=== PATIENT | female | born 1965 | race Caucasian/White ===

== ENCOUNTER → 2019-08-22 | Outpatient (CLI) | payer OTHER ==
[2019-08-22 09:30] LABS: BASO % 0.5 % (0.0-2.0); EOS # 0.2 (0.0-0.7); EOS % 2.4 % (0-4.0); GRAN # 5.4 (1.4-6.5); GRAN % 69.5 % (42.2-75.2); HEMATOCRIT 46.9 % (37.0-47.0); HEMOGLOBIN 15.5 g/dl (12.5-16.0); LYMPH # 1.7 (1.2-3.4); MEAN CELL VOLUME 84 fl (80.0-100.0); MEAN CORPUSCULAR HEMOGLOBIN 28 pg (27.0-31.0); MEAN CORPUSCULAR HGB CONC 33 g/dl (33.0-37.0); MONO # 0.4 (0.1-0.6); MONO % 5.2 % (1.7-9.3); PLATELET COUNT 237 K/mm3 (130-400); RED BLOOD COUNT 5.58 M/mm3 (4.10-5.30); REDCELL DISTRIBUTION WIDTH-CV 13.1 % (11.5-14.5)
[2019-08-22 09:58] LABS: IRON,SERUM 91 ug/dL (35-150)
[2019-08-22 10:07] LABS: TOTAL IRON BINDING CAPACITY 371 ug/dL (265-497)
== END ==
LOC: COL.LAB 08:45
PROVIDERS: Family Medicine
DX: Z00.01 Encounter for general adult medical examination with abnormal findings (principal); R71.8 Other abnormality of red blood cells

== ENCOUNTER 2019-12-07 12:00 | Inpatient (IN) | payer OTHER ==
[~2019-12-07] VITALS: Wt 121.8 kg
[2019-12-07 12:57] LABS: BASO # 0.1 (0.0-0.2); BASO % 0.7 % (0.0-2.0); EOS # 0.2 (0.0-0.7); EOS % 2.7 % (0-4.0); GRAN # 4.6 (1.4-6.5); GRAN % 69.4 % (42.2-75.2); HEMATOCRIT 45.4 % (37.0-47.0); HEMOGLOBIN 14.7 g/dl (12.5-16.0); LYMPH # 1.3 (1.2-3.4); LYMPH % 19.9 % (20.0-51.0); MEAN CELL VOLUME 87 fl (80.0-100.0); MEAN CORPUSCULAR HEMOGLOBIN 28 pg (27.0-31.0); MEAN CORPUSCULAR HGB CONC 32 g/dl (33.0-37.0); MEAN PLATELET VOLUME 10.6 fl (7.4-10.4); MONO # 0.5 (0.1-0.6); MONO % 6.9 % (1.7-9.3); PLATELET COUNT 255 K/mm3 (130-400); REDCELL DISTRIBUTION WIDTH-CV 15.1 % (11.5-14.5)
[2019-12-07 13:08] LABS: COLLECTION METHOD CLEAN CATCH
[2019-12-07 13:21] LABS: PH 5 (5-8); URINE APPEARANCE Cloudy; URINE BILIRUBIN Positive (NEGATIVE); URINE BLOOD 1+ (NEGATIVE); URINE COLOR Amber; URINE GLUCOSE Negative (NEGATIVE); URINE KETONE Trace (NEGATIVE); URINE LEUKOCYTE ESTERASE Negative (NEGATIVE); URINE NITRATE Negative (NEGATIVE); URINE PROTEIN(semi-quant) Negative (NEGATIVE); URINE UROBILINOGEN >=4.0 mg/dL (NEGATIVE)
[2019-12-07 13:31] LABS: URINE RBC 0-2 /hpf
[2019-12-07] MEDS ORDERED: SYNTHROID 0.10.15 MG PO (13:31)
[2019-12-07 13:32] LABS: URINE BACTERIA Moderate /hpf; URINE CALCIUM OXALATE CRYSTAL Present /hpf
[2019-12-07 13:45] LABS: C-REACTIVE PROTEIN 1.5 mg/dL (0.0-0.9); LIPASE 198 U/L (23-300)
[2019-12-07 13:55] LABS: TROPONIN-I < 0.012 ng/mL (0.000-0.035)
[2019-12-07 14:28] LABS: ALBUMIN 4.3 gm/dL (3.5-5.0); CALCIUM 9.2 mg/dL (8.4-10.2); CREATININE, serum 0.64 (0.52-1.25); POTASSIUM 4.2 mmol/L (3.4-5.0); TOTAL PROTEIN 8.1 gm/dL (6.4-8.2)
[2019-12-07 14:58] LABS: TSH w REFLEX 0.055 uIU/mL (0.465-4.680)
[2019-12-07 16:42] VITALS: BP 153/76; PULSE 87; TEMP 98.1
[2019-12-07 16:48] LABS: PROTHROMBIN TIME 11.3 SECONDS (9.7-12.8)
[2019-12-07 17:23] LABS: ACETAMINOPHEN < 10 ug/mL (10-30)
[2019-12-07 17:39] LABS: BILIRUBIN,DIRECT 6.6 mg/dL (0.0-0.4)
--- NOTE | 2019-12-07 17:45 | NUR ---
Assessment completed, alert/oriented, vital signs stable, denies pain or discomfort, report itching and dark urine, also reports recent N/V, some 1+ edema noted to BLE, heart RRR, lungs CTA, denies other issues, denies any recent sick contacts, meds/pharm/allergies reviewed with the patient, denies other needs at htis time
[2019-12-07 19:04] VITALS: BP 151/72; PULSE 82; TEMP 98
--- NOTE | 2019-12-07 20:18 | NUR ---
Resting in recliner. Assessment complete. Lungs clear. Heart sounds normal. Pulses present throughout. Bilateral lower extremity edema +1. INT left AC without complications. Denies pain. Denies needs at this time. Call light in reach. Will monitor.
[2019-12-08] VITALS (7 sets, daily range): BP systolic 125–149; BP diastolic 50–70; PULSE 76–84; TEMP 97.7–98.7
--- NOTE | 2019-12-08 00:36 | NUR ---
Resting in bed. Denies needs. Call light in reach.
--- NOTE | 2019-12-08 02:38 | NUR ---
Resting in bed asleep. Call light in reach.
--- NOTE | 2019-12-08 06:06 | NUR ---
Patient had uneventful night. Resting in bed this AM. Call light in reach.
--- NOTE | 2019-12-08 07:05 | NUR ---
Report given to LUIS Spring
--- NOTE | 2019-12-08 07:56 | NUR ---
Assessment complete. Patient is awake and alert at this time. She is aware that she will be going to her MRI very soon and EGD later. No complaints of pain or discomfort at this time. PAtient is independent in the room and ambulates well. IV site is CD&I. Will continue to monitor. Call light is in reach.
--- NOTE | 2019-12-08 09:06 | NUR ---
Cable Rigger attended clinical rounds with the team. The patient's questions were discussed and answered.
[2019-12-08 09:11] LABS: BASO # 0.1 (0.0-0.2); BASO % 0.8 % (0.0-2.0); EOS # 0.2 (0.0-0.7); GRAN # 5.4 (1.4-6.5); GRAN % 73.7 % (42.2-75.2); HEMATOCRIT 46.2 % (37.0-47.0); HEMOGLOBIN 14.8 g/dl (12.5-16.0); LYMPH # 1.2 (1.2-3.4); LYMPH % 16.9 % (20.0-51.0); MEAN CELL VOLUME 86 fl (80.0-100.0); MEAN CORPUSCULAR HEMOGLOBIN 28 pg (27.0-31.0); MEAN CORPUSCULAR HGB CONC 32 g/dl (33.0-37.0); MEAN PLATELET VOLUME 10.6 fl (7.4-10.4); MONO # 0.4 (0.1-0.6); MONO % 5.2 % (1.7-9.3); PLATELET COUNT 284 K/mm3 (130-400); RED BLOOD COUNT 5.37 M/mm3 (4.10-5.30); REDCELL DISTRIBUTION WIDTH-CV 15.2 % (11.5-14.5)
[2019-12-08 09:26] LABS: ALBUMIN 4.3 gm/dL (3.5-5.0); BILIRUBIN,TOTAL 7.8 mg/dL (0.0-1.0); CALCIUM 9.3 mg/dL (8.4-10.2); CREATININE, serum 0.6 (0.52-1.25); POTASSIUM 4.4 mmol/L (3.4-5.0); TOTAL PROTEIN 8.2 gm/dL (6.4-8.2)
--- NOTE | 2019-12-08 11:19 | NUR ---
First visit from the fellmongery worker. No needs right now.
--- NOTE | 2019-12-08 20:25 | NUR ---
Pt assessment completed and documented. Pt just returned to recliner from shower and is now talking on cell phone. A&O x4. Denies pain. PRN zofran given for complaints of nausea. Pt denies any other needs at this time. Call light within reach.
[2019-12-09] VITALS (8 sets, daily range): BP systolic 95–149; BP diastolic 56–78; PULSE 53–75; TEMP 97.3–98.1
--- NOTE | 2019-12-09 05:19 | NUR ---
Pt has been resting in bed overnight. No further complaints of nausea after receiving zofran earlier in the night. Pt has denied pain. Pt denies any other needs. Call light within reach
[2019-12-09 07:35] LABS: BASO # 0.1 (0.0-0.2); BASO % 0.7 % (0.0-2.0); EOS # 0.2 (0.0-0.7); EOS % 2.9 % (0-4.0); GRAN # 5.5 (1.4-6.5); GRAN % 67.1 % (42.2-75.2); HEMATOCRIT 45.4 % (37.0-47.0); HEMOGLOBIN 14.7 g/dl (12.5-16.0); LYMPH # 1.8 (1.2-3.4); LYMPH % 21.6 % (20.0-51.0); MEAN CELL VOLUME 86 fl (80.0-100.0); MEAN CORPUSCULAR HEMOGLOBIN 28 pg (27.0-31.0); MEAN CORPUSCULAR HGB CONC 32 g/dl (33.0-37.0); MEAN PLATELET VOLUME 10.5 fl (7.4-10.4); MONO # 0.6 (0.1-0.6); MONO % 7.2 % (1.7-9.3); PLATELET COUNT 278 K/mm3 (130-400); RED BLOOD COUNT 5.26 M/mm3 (4.10-5.30); REDCELL DISTRIBUTION WIDTH-CV 15.2 % (11.5-14.5)
[2019-12-09 07:54] LABS: ALBUMIN 4.1 gm/dL (3.5-5.0); BILIRUBIN,TOTAL 6.8 mg/dL (0.0-1.0); CALCIUM 9.3 mg/dL (8.4-10.2); CREATININE, serum 0.68 (0.52-1.25); POTASSIUM 4.5 mmol/L (3.4-5.0); TOTAL PROTEIN 7.9 gm/dL (6.4-8.2)
--- NOTE | 2019-12-09 08:40 | NUR ---
(late entry 12/07) Upscale Security Officer met with the patient to complete initial intake. The patient lives in [place] with her and their son. The patient denies DME use and is independent with ADLs. The patient's PCP is Dr. Rivera and the patient recieves medications from [facility] with no difficulties. The patient does not have advanced directives but was interested in a form. Form provided. The patient plans to return home. There are no additional needs at this time.
[2019-12-09] MEDS ORDERED: QUESTRAN LI4 GM/5 GM PO (10:31)
--- NOTE | 2019-12-09 13:43 | NUR ---
Pt assessment completed and charted. Pt NPO for ERCP today. Pt was to have procedure at 1000, notified by preop that procedure was pushed back until about 1245. This nurse called for check up on time again at 1345, team in meeting and then would be doing procedure. Pt has been updated, verbalizes understanding. LAC INT IV flushes w/o difficulty and and preop IVF running w/o difficulty. Pt is A&O, independent in room, on room air, breathing is even and unlabored. 1+ edema to BLE. Exp wheezes to all lung duran. Pt denies pain, dizziness, n/v/d, SOB, numbness/tingling, chest pain. No further needs at this time. Call light within reach, awaiting procedure.
--- NOTE | 2019-12-09 14:04 | NUR ---
Pt down for ERCP procedure at this time.
--- NOTE | 2019-12-09 15:10 | NUR ---
Pt back from procedure, on post ops, VSS. tolerating liquids fine.
[2019-12-09] MEDS ORDERED: LEVAQUIN 5500 MG/TA1 PO (16:07)
--- NOTE | 2019-12-09 17:44 | NUR ---
Pt discharge instructions discussed and reviewed w/ patient who verbalized understanding. All questions answered, no further needs. LAC INT IV dc'd w/o complications, catheter tip intact. Pts synthroid was in pharmacy, given back to patient. Pt escorted out via WC.
== END 2019-12-09 17:51 | disposition home or self-care (01) | DRG 436 ==
LOC: COL.ER 12:00 → MEDICAL 14:59
PROVIDERS: Emergency Medicine; Physician Assistant; ADMIT Hospitalist
DX: C24.0 Malignant neoplasm of extrahepatic bile duct (principal); K83.09 Other cholangitis; K74.3 Primary biliary cirrhosis; M79.675 Pain in left toe(s); I10 Essential (primary) hypertension; E05.80 Other thyrotoxicosis without thyrotoxic crisis or storm; Z90.711 Acquired absence of uterus with remaining cervical stump
CPT/HCPCS: 99222-AI; 99233-AI; 99239; A9585; C1769; J2405; J2704; Q9967

== ENCOUNTER → 2019-12-15 | Outpatient (CLI) | payer OTHER ==
[~2019-12-15] MED LIST: LEVAQUIN 5500 MG/TA1 PO; QUESTRAN LI4 GM/5 GM PO; SYNTHROID 0.10.15 MG PO
== END ==
LOC: COL.LAB 08:24
DX: Z20.828 Contact with and (suspected) exposure to other viral communicable diseases (principal)

== ENCOUNTER → 2020-01-02 | Outpatient (CLI) | payer OTHER ==
[2020-01-02 11:17] LABS: ALBUMIN 4.4 gm/dL (3.5-5.0); CALCIUM 9.3 mg/dL (8.4-10.2); CREATININE, serum 0.7 (0.52-1.25); POTASSIUM 4.4 mmol/L (3.4-5.0); TOTAL PROTEIN 8.2 gm/dL (6.4-8.2)
== END ==
LOC: COL.LAB 10:26
DX: C22.1 Intrahepatic bile duct carcinoma (principal)

== ENCOUNTER → 2020-01-20 | Outpatient (CLI) | payer OTHER | LOC: COL.LAB 10:34 | DX: Z20.828 Contact with and (suspected) exposure to other viral communicable diseases (principal) ==

== ENCOUNTER → 2020-01-20 | Outpatient (CLI) | payer OTHER | LOC: COL.RAD 07:03 | DX: C24.0 Malignant neoplasm of extrahepatic bile duct (principal) | CPT/HCPCS: Q9967 ==

== ENCOUNTER → 2020-04-18 | Outpatient (CLI) | payer OTHER | LOC: COL.RAD 07:57 | DX: C22.1 Intrahepatic bile duct carcinoma (principal); R16.1 Splenomegaly, not elsewhere classified ==

== ENCOUNTER → 2020-04-26 | Outpatient (CLI) | payer OTHER ==
[~2020-04-26] MED LIST changes: +NORCO 325 MG-51 TAB PO
== END ==
LOC: COL.LAB 08:00
DX: U07.1 COVID-19 (principal)

== ENCOUNTER 2020-05-14 10:30 | Day surgery (SDC) | payer OTHER ==
[~2020-05-14] VITALS: Ht 162.6 cm; Wt 116.0 kg
[~2020-05-14 10:30] MED LIST changes: -NORCO 325 MG-51 TAB PO
[2020-05-14 10:54] VITALS: BP 140/86; PULSE 91; TEMP 97.6
--- NOTE | 2020-05-14 12:28 | NUR ---
Patient ambulates to the restroom with steady gait, voids, and returns to room.
[2020-05-14 13:30] VITALS: BP 121/66; PULSE 88; TEMP 97
[2020-05-14] MEDS ORDERED: NORCO 325 MG-51 TAB PO (13:30)
--- NOTE | 2020-05-14 13:30 | NUR ---
Patient arrives to [facility] [place] [facility] via cart, accompanied by PARTS COUNTER ASSOCIATE Rae and MAY Adams. She is awake, alert, lying in bed. Monitoring is applied -VSS and WNL on room air. Her surgical site is covered with clean, dry, intact bandage and bandaid. She denies any pain or nausea. She is very tearful. Time is spent with the patient talking and offering support. She denies any further needs. Her is contacted and will head to the hospital to sit with her.
[2020-05-14 13:45] VITALS: BP 126/73; PULSE 85
--- NOTE | 2020-05-14 13:45 | NUR ---
VSS and WNL on room air. Patient's arrives and is brought to the bedside. HOB is raised and patient is given crackers/water to eat/drink. She and her are chatting. Will continue to monitor.
[2020-05-14 14:00] VITALS: BP 132/77; PULSE 80
--- NOTE | 2020-05-14 14:00 | NUR ---
Patient tolerated PO well. Denies pain or nausea. VSS on room air. She requests and receives more crackers.
--- NOTE | 2020-05-14 14:29 | NUR ---
Patient has met discharge criteria. Discharge instructions are discussed with the patient and her spouse. They deny questions and verbalize understanding. PIV is removed with catheter intact and hemostasis achieved. She is changing to her clothing with the assistance of her spouse.
--- NOTE | 2020-05-14 14:40 | NUR ---
Patient is escorted to the exit via wheelchair by staff. She is discharged to home with ride in private vehicle to the care of her spouse at 1440.
== END 2020-05-14 14:40 | disposition home or self-care (01) ==
LOC: SDCO 10:30
DX: E03.9 Hypothyroidism, unspecified (principal); C22.1 Intrahepatic bile duct carcinoma; Z20.822 Contact with and (suspected) exposure to COVID-19; Z96.89 Presence of other specified functional implants; Z80.3 Family history of malignant neoplasm of breast; Z88.0 Allergy status to penicillin; Z83.3 Family history of diabetes mellitus; Z82.3 Family history of stroke
CPT/HCPCS: C1788; J0690; J1644; J2704; J7120

== ENCOUNTER → 2020-07-12 | Outpatient (CLI) | payer OTHER ==
[~2020-07-12] MED LIST changes: +NORCO 325 MG-51 TAB PO
== END ==
LOC: COL.RAD 07:59
DX: C22.1 Intrahepatic bile duct carcinoma (principal); J98.6 Disorders of diaphragm; K82.0 Obstruction of gallbladder; Z95.9 Presence of cardiac and vascular implant and graft, unspecified; Z90.710 Acquired absence of both cervix and uterus
CPT/HCPCS: Q9967

== ENCOUNTER → 2020-10-02 | Outpatient (CLI) | payer OTHER | LOC: COL.RAD 13:10 | DX: C22.1 Intrahepatic bile duct carcinoma (principal); C79.51 Secondary malignant neoplasm of bone; R19.01 Right upper quadrant abdominal swelling, mass and lump; R59.0 Localized enlarged lymph nodes; Z96.89 Presence of other specified functional implants; Z90.710 Acquired absence of both cervix and uterus | CPT/HCPCS: Q9967 ==

== ENCOUNTER → 2020-12-24 | Outpatient (CLI) | payer OTHER | LOC: COL.RAD 08:22 | DX: C22.1 Intrahepatic bile duct carcinoma (principal); C79.51 Secondary malignant neoplasm of bone; R59.0 Localized enlarged lymph nodes; K76.9 Liver disease, unspecified; Z90.710 Acquired absence of both cervix and uterus | CPT/HCPCS: Q9967 ==

== ENCOUNTER → 2021-03-18 | Outpatient (CLI) | payer OTHER | LOC: COL.RAD 08:02 | DX: C22.1 Intrahepatic bile duct carcinoma (principal); C79.51 Secondary malignant neoplasm of bone; R19.09 Other intra-abdominal and pelvic swelling, mass and lump; Z95.9 Presence of cardiac and vascular implant and graft, unspecified | CPT/HCPCS: Q9967 ==

== ENCOUNTER → 2021-06-14 | Outpatient (CLI) | payer OTHER | LOC: COL.RAD 06-13 08:30 | DX: C22.1 Intrahepatic bile duct carcinoma (principal) | CPT/HCPCS: Q9967 ==

== ENCOUNTER 2021-09-20 21:45 | Emergency (ER) | payer OTHER ==
[~2021-09-20] VITALS: Ht 162.6 cm; Wt 112.7 kg
[2021-09-20 21:47] VITALS: TEMP 99.9
[2021-09-20 22:14] LABS: BASO % 0.4 % (0.0-2.0); EOS % 0.9 % (0.0-4.0); GRAN # 1.9 K/mm3 (1.4-6.5); GRAN % 83.7 % (42.2-75.2); HEMOGLOBIN 11.1 g/dl (12.5-16.0); LYMPH # 0.2 K/mm3 (1.2-3.4); LYMPH % 8.8 % (20.0-51.0); MEAN CELL VOLUME 91 fl (80.0-100.0); MEAN CORPUSCULAR HEMOGLOBIN 30 pg (27-31); MEAN CORPUSCULAR HGB CONC 33 g/dl (33.0-37.0); MEAN PLATELET VOLUME 12.2 fl (7.4-10.4); MONO # 0.1 K/mm3 (0.1-0.6); MONO % 5.3 % (1.7-9.3); PLATELET COUNT 70 K/mm3 (130-400); RED BLOOD COUNT 3.74 M/mm3 (4.10-5.30); REDCELL DISTRIBUTION WIDTH-CV 17.2 % (11.5-14.5)
[2021-09-20 22:28] LABS: ALANINE AMINOTRANSFERASE 82 U/L (0-55); ALBUMIN 2.8 gm/dL (3.5-5.0); ALKALINE PHOSPHATASE 164 U/L (40-150); ANION GAP 14 mmol/L (7-16); AST,SGOT 113 U/L (5-34); BILIRUBIN,TOTAL 2.7 mg/dL (0.2-1.2); BLOOD UREA NITROGEN 25 mg/dL (10-20); CALCIUM 8.3 mg/dL (8.4-10.2); CARBON DIOXIDE 19 mmol/L (22-29); CHLORIDE 107 mmol/L (98-107); CREATININE, serum 0.78 mg/dL (0.57-1.11); GLUCOSE 174 mg/dL (70-99); POTASSIUM 3.6 mmol/L (3.5-4.5); SODIUM 140 mmol/L (136-145); TOTAL PROTEIN 6.1 gm/dL (6.2-8.1)
[2021-09-20 22:34] LABS: TROPONIN-I < 0.010 ng/mL (0.00-0.033)
[2021-09-20 22:36] LABS: HEMATOCRIT 33.9 % (37.0-47.0)
[2021-09-20 23:40] VITALS: BP 94/56; PULSE 103
== END 2021-09-20 23:40 | disposition home or self-care (01) ==
LOC: COL.ER 21:45
PROVIDERS: Emergency Medicine
DX: R55 Syncope and collapse (principal); E86.0 Dehydration; C24.9 Malignant neoplasm of biliary tract, unspecified; D61.818 Other pancytopenia; R00.0 Tachycardia, unspecified; Z20.822 Contact with and (suspected) exposure to COVID-19
CPT/HCPCS: J7030

== ENCOUNTER → 2021-09-25 | Outpatient (CLI) | payer OTHER | LOC: COL.RAD 07:49 | DX: C22.1 Intrahepatic bile duct carcinoma (principal); C79.51 Secondary malignant neoplasm of bone; C77.2 Secondary and unspecified malignant neoplasm of intra-abdominal lymph nodes | CPT/HCPCS: Q9967 ==

== ENCOUNTER → 2021-12-18 | Outpatient (CLI) | payer OTHER | LOC: COL.RAD 09:54 | DX: C22.1 Intrahepatic bile duct carcinoma (principal); C79.51 Secondary malignant neoplasm of bone; R16.1 Splenomegaly, not elsewhere classified; Z96.89 Presence of other specified functional implants | CPT/HCPCS: Q9967 ==